=== PATIENT | male | born 1990 | race Caucasian/White ===

== ENCOUNTER 2022-02-23 22:46 | Emergency (ER) | payer OTHER, SELFPAY ==
--- NOTE | ~2022-02-23 | XR_ITS ---
EXAMINATION: XR CHEST CLINICAL INFORMATION: Chest pain. COMPARISON: Chest radiograph 07/21/2013. TECHNIQUE: PA view of the chest was obtained. FINDINGS: No significant abnormality is noted involving the heart, lungs, mediastinum, bony thorax or soft tissues. XR/XR chest 1V IMPRESSION: Unremarkable examination.
--- NOTE | 2022-02-23 22:49 | ECG_ITS ---
Test Reason : cx pain Blood Pressure : / mmHG Vent. Rate : 082 BPM Atrial Rate : 082 BPM P-R Int : 150 ms QRS Dur : 082 ms QT Int : 366 ms P-R-T Axes : 020 042 069 degrees QTc Int : 427 ms Normal sinus rhythm Cannot rule out Anterior infarct , age undetermined Abnormal ECG When compared with ECG of 29-JUL-2017 00:52, Nonspecific T wave abnormality now evident in Lateral leads Referred By: Generic ED Physician Electronically Signed By:YAHIR FREY MD
[2022-02-24 00:07] VITALS: BP 141/97; PULSE 84; RESP 20; TEMP 36.7; O2SAT 96; BMI 28.4
[2022-02-24 00:27] VITALS: BP 149/97; PULSE 71; RESP 16; TEMP 36.9; O2SAT 98
[2022-02-24 00:38] LABS: Basophils Absolute Auto 0.1 X10*3/uL (0.0-0.2); Basophils Percent Auto 0.8 % (0-2); Eosinophils Absolute Auto 0.2 X10*3/uL (0.0-0.4); Eosinophils Percent Auto 2.3 % (0-4); Hemoglobin 15.2 g/dl (14.0-18.0); Imm Gran Abs Auto 0.06 X10*3/uL (0.00-0.03); Imm Gran Pct Auto 0.7 % (0.0-0.4); Lymphocytes Absolute Auto 2.4 X10*3/uL (1.2-4.9); Lymphocytes Percent Auto 26.2 % (20-40); MANUAL DIFF FLAG NO; Mean Corpuscular HGB Conc 34.5 g/dl (31.0-36.0); Mean Corpuscular Hemoglobin 32.3 pg (27.0-33.0); Mean Corpuscular Volume 93.4 fL (80.0-98.0); Mean Platelet Volume 9.2 fL (9.4-12.4); Monocytes Percent Auto 11.2 % (2-11); Neutrophils Absolute Auto 5.4 x10*3/uL (2.0-8.3); Neutrophils Percent Auto 58.8 % (45-73); Platelet Count 339 X10*3/uL (160-400); Red Blood Count 4.71 X10*6/uL (4.60-5.80); Red Cell Distribution Width 12.2 % (11.0-16.0); White Blood Count 9.2 X10*3/uL (4.8-10.8)
--- NOTE | 2022-02-24 00:51 | ED_ITS ---
HPI - Chest Pain General Chief Complaint: Chest Pain <MEGHANA Quiñones Last Filed: 02/24/22 02:34> Stated Complaint: Chest pain <MEGHANA Quiñones Last Filed: 02/24/22 02:34> Time Seen by Provider: 02/24/22 00:37 <MEGHANA Quiñones Last Filed: 02/24/22 02:34> Source: patient <MEGHANA Quiñones Last Filed: 02/24/22 02:34> Mode of arrival: ambulatory <MEGHANA Quiñones Last Filed: 02/24/22 02:34> Limitations: no limitations <MEGHANA Quiñones Last Filed: 02/24/22 02:34> History of Present Illness HPI narrative: 31-year-old male with no past medical history presenting today with sudden onset of chest pain that woke him up from sleep at 1830 today. He states that the pain radiates down his left arm, and that he feels out of breath even when he is sitting still. He also reports pain on the outside of his left calf going on for a while. His significant other states he has had a similar episode about a month ago, however this time he has the pain in his calf. He denies any headache, Fever, nausea, vomiting, chills, myalgias, abdominal pain, palpitations. Reports marijuana and cocaine use. <MEGHANA Quiñones Last Filed: 02/24/22 02:34> Related Data Allergies/Adverse Reactions: Allergies Allergy/AdvReac Type Severity Reaction Status Date / Time No Known Allergies Allergy Verified 02/24/22 00:10 <MEGHANA Quiñones Last Filed: 02/24/22 02:34> Review of Systems Review of Systems: Constitutional : No Weight loss, No Fever, No Chills, No Fatigue, No Malaise ENT/Mouth : No sore throat, No Rhinorrhea Eyes: No Eye Pain, No Swelling, No Redness Cardiovascular : + Chest Pain, + SOB, No Dyspnea on Exertion, No Orthopnea, No Edema, No Palpitations Respiratory : No Cough, No Sputum, No Wheezing Gastrointestinal : No Nausea, No Vomiting, No Diarrhea, No Constipation, No abdominal Pain, No Hematochezia, No Melena Genitourinary : No Dysuria, No Urinary Frequency, No Hematuria, Musculoskeletal : No joint pain, No Myalgias, No Joint Swelling Skin : No Skin Lesions, No rash Neuro : No Weakness, No Numbness, No Dizziness, No Headache Psych : No Anxiety/Panic, No Depression Heme/Lymph: No Bruising, No Bleeding,No Lymphadenopathy Endocrine : No Polyuria, No Polydipsia All other systems reviewed and are negative <MEGHANA Quiñones - Last Filed: 02/24/22 02:34> Yes all other systems are reviewed and are negative <MEGHANA Quiñones - Last Filed: 02/24/22 02:34> [facility] Past Medical History Attestation statement: The following information was validated with the patient. <MEGHANA Quiñones - Last Filed: 02/24/22 02:34> Source: old records reviewed and nursing notes reviewed <MEGHANA Quiñones - Last Filed: 02/24/22 02:34> Social History Social History: Social History Advance Directives: No Advance Directives Information Provided: Yes <MEGHANA Quiñones - Last Filed: 02/24/22 02:34> Physical Exam Vital Signs: Vital Signs: Last Vital Signs Temp 98.4 F 02/24/22 00:27 Pulse 71 02/24/22 00:27 Resp 16 02/24/22 00:27 BP 149/97 H 02/24/22 00:27 Pulse Ox 98 02/24/22 00:27 O2 Del Method 02/24/22 00:27 BMI result Body Mass Index 28.4 Vital signs stable <MEGHANA Quiñones - Last Filed: 02/24/22 02:34> Vital Signs: Last Vital Signs Temp 98.4 F 02/24/22 00:27 Pulse 71 02/24/22 00:27 Resp 16 02/24/22 00:27 BP 149/97 H 02/24/22 00:27 Pulse Ox 98 02/24/22 00:27 O2 Del Method 02/24/22 00:27 BMI result Body Mass Index 28.4 <Zahida Nieto MD - Last Filed: 02/24/22 03:12> Appearance: Alert.? Oriented X3.? No acute distress.? Head: Normocephalic, atraumatic, no step-offs or deformities Eyes: Pupils equal, round and reactive to light.? ENT: Pharynx normal.? Neck: Normal inspection.? Neck supple.? CVS: Normal heart rate and rhythm.? Pulses normal.?+ pain with palpation to left anterior chest wall Respiratory: No respiratory distress.? Breath sounds normal.? Abdomen: Soft and nontender.? Skin: Skin warm and dry.? Normal skin color.? Normal skin turgor.? Extremities: No lower extremity edema.? No calf ttp, negative mcihael b/l. 5/5 strength to bilateral upper and lower extremities Neuro: Oriented X 3.? No motor deficit.? No sensory deficit. CN 2-12 intact <MEGHANA Quiñones - Last Filed: 02/24/22 02:34> Course Reevaluation(s) Reevaluation #1: CBC within normal limits. CBC within normal limits. Chemistry with no acute electrolyte abnormalities requiring intervention. Troponin negative, EKG nonischemic unlikely ACS. Chest Xray unremarkable. Dimer pending. I suspect chostochondritis. Unlikely PE, will rule out with dimer. Sign out given to Dr. Nieto. Pending dimer. I suspect DC home. <MEGHANA Quiñones - Last Filed: 02/24/22 02:34> CBC within normal limits. CBC within normal limits. Chemistry with no acute electrolyte abnormalities requiring intervention. Troponin negative, EKG nonischemic unlikely ACS. Chest Xray unremarkable. Dimer pending. I suspect chostochondritis. Unlikely PE, will rule out with dimer. Sign out given to Dr. Nieto. Pending dimer. I suspect DC home. D-dimer is negative, troponin negative, patient ready for discharge <Zahida Nieto MD - Last Filed: 02/24/22 03:12> Time: 02:21 <MEGHANA Quiñones - Last Filed: 02/24/22 02:34> MDM - Chest Pain MDM Narrative Medical decision making narrative: 0020 31-year-old male presents with chest pain, shortness of breath and left-sided calf pain since around 630 today, pain will come from his sleep. Tells me this has happened to him before. Reports cocaine and marijuana use. Tells me all of these are intermittent in nature. no personal or family cardiac history. Physical examination benign . Negative Michael bilaterally. Will rule out ACS, PE. Patient has no risk factors for DVT or PE therefore PE unlikely <MEGHANA Quiñones - Last Filed: 02/24/22 02:34> Medical Records Data Attestation: I reviewed the patient's medical records. <MEGHANA Quiñones - Last Filed: 02/24/22 02:34> Lab Data Attestation: I reviewed the patient's lab results. <MEGHANA Quiñones - Last Filed: 02/24/22 02:34> Result diagrams: : 02/24/22 00:33 02/24/22 00:33 <MEGHANA Quiñones - Last Filed: 02/24/22 02:34> Labs: Lab Results 02/24/22 02/24/22 02/24/22 Range/Units 00:33 00:33 00:33 WBC 9.2 (4.8-10.8) X10*3/uL RBC 4.71 (4.60-5.80) X10*6/uL Hgb 15.2 (14.0-18.0) g/dl Hct 44.0 (42.0-52.0) % MCV 93.4 (80.0-98.0) fL MCH 32.3 (27.0-33.0) pg MCHC 34.5 (31.0-36.0) g/dl RDW 12.2 (11.0-16.0) % Plt Count 339 (160-400) X10*3/uL MPV 9.2 L (9.4-12.4) fL Immature Gran % (Auto) 0.7 H (0.0-0.4) % Neut % (Auto) 58.8 (45-73) % Lymph % (Auto) 26.2 (20-40) % [place] % (Auto) 11.2 H (2-11) % Eos % (Auto) 2.3 (0-4) % Baso % (Auto) 0.8 (0-2) % Lymph # (Auto) 2.4 (1.2-4.9) X10*3/uL [place] # (Auto) 1.0 (0.1-1.2) X10*3/uL Eos # (Auto) 0.2 (0.0-0.4) X10*3/uL Baso # (Auto) 0.1 (0.0-0.2) X10*3/uL Abs Immat Gran (auto) 0.06 H (0.00-0.03) X10*3/uL Absolute Neuts (auto) 5.4 (2.0-8.3) x10*3/uL Absolute Nucleated RBC 0.000 (0.0-0.012) X10*3/uL Nucleated RBC % (auto) 0.0 (0.0-0.2) /100WBC D-Dimer High Sensitivty NG/ML Sodium 135 (135-145) mmol/L Potassium 4.6 (3.3-5.1) mmol/L Chloride 106 (96-108) mmol/L Carbon Dioxide 20 L (22-29) mmol/L Anion Gap 14 (12-20) BUN 13 (9-16) mg/dL Creatinine 0.93 (0.5-1.4) mg/dL Estim Creat Clear Calc 119.7 Estimated GFR > 60 Random Glucose 92 (60-115) mg/dL Calcium 9.4 (8.4-10.2) mg/dL Troponin I High Sens < 3.5 (<3.5-35.0) ng/L 02/24/22 Range/Units 02:45 WBC (4.8-10.8) X10*3/uL RBC (4.60-5.80) X10*6/uL Hgb (14.0-18.0) g/dl Hct (42.0-52.0) % MCV (80.0-98.0) fL MCH (27.0-33.0) pg MCHC (31.0-36.0) g/dl RDW (11.0-16.0) % Plt Count (160-400) X10*3/uL MPV (9.4-12.4) fL Immature Gran % (Auto) (0.0-0.4) % Neut % (Auto) (45-73) % Lymph % (Auto) (20-40) % [place] % (Auto) (2-11) % Eos % (Auto) (0-4) % Baso % (Auto) (0-2) % Lymph # (Auto) (1.2-4.9) X10*3/uL [place] # (Auto) (0.1-1.2) X10*3/uL Eos # (Auto) (0.0-0.4) X10*3/uL Baso # (Auto) (0.0-0.2) X10*3/uL Abs Immat Gran (auto) (0.00-0.03) X10*3/uL Absolute Neuts (auto) (2.0-8.3) x10*3/uL Absolute Nucleated RBC (0.0-0.012) X10*3/uL Nucleated RBC % (auto) (0.0-0.2) /100WBC D-Dimer High Sensitivty < 150 NG/ML Sodium (135-145) mmol/L Potassium (3.3-5.1) mmol/L Chloride (96-108) mmol/L Carbon Dioxide (22-29) mmol/L Anion Gap (12-20) BUN (9-16) mg/dL Creatinine (0.5-1.4) mg/dL Estim Creat Clear Calc Estimated GFR Random Glucose (60-115) mg/dL Calcium (8.4-10.2) mg/dL Troponin I High Sens (<3.5-35.0) ng/L <MEGHANA Quiñones - Last Filed: 02/24/22 02:34> Lab Results 02/24/22 02/24/22 02/24/22 Range/Units 00:33 00:33 00:33 WBC 9.2 (4.8-10.8) X10*3/uL RBC 4.71 (4.60-5.80) X10*6/uL Hgb 15.2 (14.0-18.0) g/dl Hct 44.0 (42.0-52.0) % MCV 93.4 (80.0-98.0) fL MCH 32.3 (27.0-33.0) pg MCHC 34.5 (31.0-36.0) g/dl RDW 12.2 (11.0-16.0) % Plt Count 339 (160-400) X10*3/uL MPV 9.2 L (9.4-12.4) fL Immature Gran % (Auto) 0.7 H (0.0-0.4) % Neut % (Auto) 58.8 (45-73) % Lymph % (Auto) 26.2 (20-40) % [place] % (Auto) 11.2 H (2-11) % Eos % (Auto) 2.3 (0-4) % Baso % (Auto) 0.8 (0-2) % Lymph # (Auto) 2.4 (1.2-4.9) X10*3/uL [place] # (Auto) 1.0 (0.1-1.2) X10*3/uL Eos # (Auto) 0.2 (0.0-0.4) X10*3/uL Baso # (Auto) 0.1 (0.0-0.2) X10*3/uL Abs Immat Gran (auto) 0.06 H (0.00-0.03) X10*3/uL Absolute Neuts (auto) 5.4 (2.0-8.3) x10*3/uL Absolute Nucleated RBC 0.000 (0.0-0.012) X10*3/uL Nucleated RBC % (auto) 0.0 (0.0-0.2) /100WBC D-Dimer High Sensitivty NG/ML Sodium 135 (135-145) mmol/L Potassium 4.6 (3.3-5.1) mmol/L Chloride 106 (96-108) mmol/L Carbon Dioxide 20 L (22-29) mmol/L Anion Gap 14 (12-20) BUN 13 (9-16) mg/dL Creatinine 0.93 (0.5-1.4) mg/dL Estim Creat Clear Calc 119.7 Estimated GFR > 60 Random Glucose 92 (60-115) mg/dL Calcium 9.4 (8.4-10.2) mg/dL Troponin I High Sens < 3.5 (<3.5-35.0) ng/L 02/24/22 Range/Units 02:45 WBC (4.8-10.8) X10*3/uL RBC (4.60-5.80) X10*6/uL Hgb (14.0-18.0) g/dl Hct (42.0-52.0) % MCV (80.0-98.0) fL MCH (27.0-33.0) pg MCHC (31.0-36.0) g/dl RDW (11.0-16.0) % Plt Count (160-400) X10*3/uL MPV (9.4-12.4) fL Immature Gran % (Auto) (0.0-0.4) % Neut % (Auto) (45-73) % Lymph % (Auto) (20-40) % [place] % (Auto) (2-11) % Eos % (Auto) (0-4) % Baso % (Auto) (0-2) % Lymph # (Auto) (1.2-4.9) X10*3/uL [place] # (Auto) (0.1-1.2) X10*3/uL Eos # (Auto) (0.0-0.4) X10*3/uL Baso # (Auto) (0.0-0.2) X10*3/uL Abs Immat Gran (auto) (0.00-0.03) X10*3/uL Absolute Neuts (auto) (2.0-8.3) x10*3/uL Absolute Nucleated RBC (0.0-0.012) X10*3/uL Nucleated RBC % (auto) (0.0-0.2) /100WBC D-Dimer High Sensitivty < 150 NG/ML Sodium (135-145) mmol/L Potassium (3.3-5.1) mmol/L Chloride (96-108) mmol/L Carbon Dioxide (22-29) mmol/L Anion Gap (12-20) BUN (9-16) mg/dL Creatinine (0.5-1.4) mg/dL Estim Creat Clear Calc Estimated GFR Random Glucose (60-115) mg/dL Calcium (8.4-10.2) mg/dL Troponin I High Sens (<3.5-35.0) ng/L <Zahida Nieto MD - Last Filed: 02/24/22 03:12> ECG Data ECG #1: Attestation: I personally reviewed and interpreted this ECG as follows: <MEGHANA Quiñones - Last Filed: 02/24/22 02:34> ECG interpretation date: 02/24/22 <MEGHANA Quiñones - Last Filed: 02/24/22 02:34> ECG interpretation time: 23:30 <MEGHANA Quiñones - Last Filed: 02/24/22 02:34> Prior ECG tracings: not available for review <MEGHANA Quiñones - Last Filed: 02/24/22 02:34> Interpretation: ventricular rate of 82, AK normal, QRS normal, QT/ QTC normal. EKG with normal sinus rhythm no signs acute ischemia, no ST elevations or inversions. No previous to compare with. <MEGHANA Quiñones - Last Filed: 02/24/22 02:34> Critical Care Time Critical Care Time Critical Care Time: No <MEGHANA Quiñones - Last Filed: 02/24/22 02:34> Discharge Plan Discharge Clinical Impression: Chest pain, Costochondritis, Left against medical advice <MEGHANA Quiñones - Last Filed: 02/24/22 02:34> Patient Disposition: Home, Self-Care <MEGHANA Quiñones - Last Filed: 02/24/22 02:34> Instructions: Chest Pain (ED), Costochondritis (ED) <MEGHANA Quiñones - Last Filed: 02/24/22 02:34> Additional Instructions: Take your medications as prescribed. If you were prescribed antibiotics today, it is important that you take your medication to their entirety, do not skip any doses, do not finish them early. Follow-up with your primary care provider this week. follow-up with cardiology if this continues Return to the emergency department with new or worsening symptoms. Such as fevers, chills, chest pain, shortness of breath, nausea, vomiting, dizziness, headache, vision changes, lethargy In case of emergency call 911 you can take ibuprofen every 6 hours, Tylenol every 4 as needed for pain or discomfort Your choosing to leave against medical advice which means your condition can go on diagnosis, can worsen, risks include worsening condition, decreased quality of life, pain, heart attack, stroke, . <MEGHANA Quiñones - Last Filed: 02/24/22 02:34> Referrals: Truman Reynoso MD [Physician] - 2 days Sanket Monk MD [Primary Care Provider] - 2 days <MEGHANA Quiñones - Last Filed: 02/24/22 02:34> Stand Alone Forms: Against Medical Advice, Work/School Release <MEGHANA Quiñones - Last Filed: 02/24/22 02:34>
[2022-02-24 00:59] LABS: Troponin-I High Sensitivity < 3.5 ng/L (<3.5-35.0)
[2022-02-24 01:03] LABS: Anion Gap 14 (12-20); Blood Urea Nitrogen 13 mg/dL (9-16); Calcium 9.4 mg/dL (8.4-10.2); Carbon Dioxide 20 mmol/L (22-29); Chloride 106 mmol/L (96-108); Creatinine Clr Calc Pharmacy 119.7; Estimated Glomerular Filt Rate > 60; Glucose Random 92 mg/dL (60-115); Potassium 4.6 mmol/L (3.3-5.1); Sodium 135 mmol/L (135-145)
[2022-02-24 03:04] LABS: D Dimer High Sensitivity < 150 NG/ML
== END 2022-02-24 03:57 | disposition home or self-care (01) ==
PROVIDERS: Emergency Medicine; Physician Assistant; Emergency Provider Emergency Medicine; PCP Internal Medicine
DX: R07.89 Other chest pain (principal); R06.02 Shortness of breath; M94.0 Chondrocostal junction syndrome [Tietze]; M79.605 Pain in left leg; Z79.899 Other long term (current) drug therapy
CPT/HCPCS: 36415; 71045; 80048; 84484; 85025; 85379; 93005; 99284

== ENCOUNTER 2022-04-05 14:46 | Emergency (ER) | payer OTHER, SELFPAY | END 2022-04-05 17:25 | disposition left against medical advice (07) | PROVIDERS: Emergency Provider Emergency Medicine | DX: Z04.9 Encounter for examination and observation for unspecified reason (principal) ==

== ENCOUNTER 2022-08-26 18:20 | Emergency (ER) | payer OTHER, SELFPAY ==
--- NOTE | ~2022-08-26 | XR_ITS ---
EXAMINATION: XR CHEST CLINICAL INFORMATION: Cough and fever COMPARISON: 2021 TECHNIQUE: Frontal view of the chest was obtained. FINDINGS: No significant abnormality is noted involving the heart, lungs, mediastinum, bony thorax or soft tissues. XR/XR chest 1V IMPRESSION: Unremarkable examination.
[2022-08-26 18:24] VITALS: BP 122/70; BP 125/61; PULSE 106; PULSE 89; RESP 18; TEMP 36.9; O2SAT 96; O2SAT 97; BMI 24.9
[2022-08-26] MEDS: diphenhydrAMINE HCL 25 MG CAPSULE 50 MG PO (20:08)
[2022-08-26 20:46] LABS: COVID-19 Test Negative (Negative); IDNOW Serial# 16C4AD1C; IDNOW Serial# BCCEAD1C; Influenza A Negative (Negative); Influenza B2 Negative (Negative)
[2022-08-26 21:13] LABS: IDNOW Serial# 6674DD1D; Strep A Nucleic Acid Negative (Negative)
--- NOTE | 2022-08-26 21:32 | ED_ITS ---
HPI - URI/Sore Throat General Chief Complaint: Fever Stated Complaint: Fever,Weakness,Hives Time Seen by Provider: 08/26/22 19:06 Source: patient Mode of arrival: ambulatory Limitations: no limitations History of Present Illness HPI Narrative: Patient not vaccinated against COVID/flu comes in for fever chills running nose since early today temperature of 102.7 degrees nobody else sick at home patient's mother was sick 2 weeks ago with flu patient also itching all over took Tylenol and Motrin before he can Related Data Previous Rx's Medication Instructions Recorded cefuroxime axetil 500 mg tablet 500 mg PO BID #20 tabs 08/26/22 ibuprofen 600 mg tablet 600 mg PO Q6H PRN fever or pain 08/26/22 #30 tabs Allergies Allergy/AdvReac Type Severity Reaction Status Date / Time No Known Allergies Allergy Verified 02/24/22 00:10 Review of Systems Review of Systems: Yes all other systems are reviewed and are negative PMFSH Social History Social History Advance Directives: No Advance Directives Information Provided: No Physical Exam Vital Signs: Vital Signs: Last Vital Signs Temp 99.4 F 08/26/22 22:16 Pulse 89 08/26/22 18:24 Resp 18 08/26/22 18:24 BP 125/61 08/26/22 18:24 Pulse Ox 96 08/26/22 18:24 O2 Del Method 08/26/22 18:24 BMI result Body Mass Index 24.9 Appearance: Alert. Oriented X3. No acute distress. ENT: Pharynx inflamed Oral Mucosa moist clear rhinorrhea Neck: Normal inspection. Neck supple. CVS: Normal heart rate and rhythm. Pulses normal. Respiratory: No respiratory distress. Equal air entry bilateral, no wheezing/rales/rhonchi Abdomen: Soft and nontender. Bowel sounds are present, no mass palpable, no CVA tenderness Skin: Skin warm and dry. Normal skin color. Normal skin turgor. Extremities: No lower extremity edema. No calf tenderness Neuro: Oriented X 3. Medications Administered Discontinued Medications Generic Name Dose Route Start Last Admin Trade Name Freq PRN Reason Stop Dose Admin Cefuroxime Axetil 500 mg 08/26/22 21:56 08/26/22 22:15 Cefuroxime Axetil 500 Mg Tablet PO 08/26/22 21:57 500 mg ONCE ONE Administration Diphenhydramine HCl 50 mg 08/26/22 19:27 08/26/22 20:08 Diphenhydramine Hcl 25 Mg Capsule PO 08/26/22 19:28 50 mg ONCE ONE Administration Medical Decision Making Medical Decision Making [facility] Narrative: Patient with fever mild cough on exam she had has erythema of the throat but strep and COVID and flu negative chest x-ray also negative will give patient Ceftin possible pharyngitis Lab Data [facility] Lab Attestation statement: I reviewed the patient's lab results. Labs: Lab Results 08/26/22 08/26/22 08/26/22 Range/Units 20:06 20:06 21:01 COVID-19 (GRISEL) Negative (Negative) COVID-19 Clin Com See Note Influenza Type A (KELI) Negative (Negative) Influenza Type B (KELI) Negative (Negative) Influenza A & B Note See Note S. pyogenes GrpA KELI Negative (Negative) Discharge Plan Discharge Clinical Impression: URI (upper respiratory infection) Patient Disposition: Home, Self-Care Instructions: Upper Respiratory Infection (ED) Additional Instructions: Take antibiotic as prescribed Drink plenty of fluids Tylenol/Motrin for fever Follow with PCP if not better Prescriptions: New ibuprofen 600 mg tablet 600 mg PO Q6H PRN (Reason: fever or pain) Qty: 30 0RF cefuroxime axetil 500 mg tablet 500 mg PO BID Qty: 20 0RF Stand Alone Forms: Work/School Release Interventions: ED Discharge Assessment Last Done: 08/26/22 22:18 Discharge Date/Time: 08/26/22 22:26
[2022-08-26 22:16] VITALS: TEMP 37.4
== END 2022-08-26 22:26 | disposition home or self-care (01) ==
PROVIDERS: Emergency Provider Internal Medicine
DX: J06.9 Acute upper respiratory infection, unspecified (principal); R50.9 Fever, unspecified; Z20.822 Contact with and (suspected) exposure to COVID-19
CPT/HCPCS: 36415; 71045; 87502; 87635; 87651; 99283; 99284

== ENCOUNTER 2022-10-13 03:13 | Emergency (ER) | payer OTHER, SELFPAY ==
[2022-10-13 03:35] VITALS: BP 133/86; PULSE 105; RESP 16; TEMP 36.4; O2SAT 98; BMI 24.4
--- NOTE | 2022-10-13 04:53 | ED_ITS ---
HPI - Wound/Laceration General Chief Complaint: Wound/Laceration Stated Complaint: Cut on right wrist Time Seen by Provider: 10/13/22 04:49 Source: patient Mode of arrival: ambulatory History of Present Illness HPI narrative: 32-year-old male who presents with laceration to inner right wrist over 12 hours ago and denies any difficulty with moving the wrist in any direction and states his last tetanus shot was within the past 5 years. Related Data Previous Rx's Medication Instructions Recorded cefuroxime axetil 500 mg tablet 500 mg PO BID #20 tabs 08/26/22 ibuprofen 600 mg tablet 600 mg PO Q6H PRN fever or pain 08/26/22 #30 tabs amoxicillin 875 mg-potassium 1 tab PO BID 7 days #14 tabs 10/13/22 clavulanate 125 mg tablet Allergies Allergy/AdvReac Type Severity Reaction Status Date / Time No Known Allergies Allergy Verified 10/13/22 03:38 Review of Systems Review of Systems: Pertinent positives and negatives as stated in HPI [facility] Past Medical History Source: nursing notes reviewed Social History Social History Advance Directives: No Advance Directives Information Provided: No Physical Exam Vital Signs: Vital Signs: Last Vital Signs Temp 97.6 F 10/13/22 03:35 Pulse 105 H 10/13/22 03:35 Resp 16 10/13/22 03:35 BP 133/86 10/13/22 03:35 Pulse Ox 98 10/13/22 03:35 O2 Del Method 10/13/22 03:35 BMI result Body Mass Index 24.4 VITAL SIGNS: Reviewed. GENERAL: Well developed, well nourished, in no acute distress. HEAD: Normocephalic/atraumatic EYES: PERRLA, EOMI LUNGS: Normal breath sounds. No adventitious sounds or accessory muscle use. SpO2<98> CARDIOVASCULAR: Regular rate and rhythm without noted murmurs ABDOMEN: Soft, non-tender, non-distended with bowel sounds. EXTREMITIES: No cyanosis, clubbing or edema; RIGHT UPPER EXTREMITY: There is an irregular laceration noted to the inner aspect of the right wrist without tendon involvement and appears to be old in nature as that has already started to close over and has a significant amount of surrounding erythema. SKIN: Inspection of the skin reveals no rashes NEUROLOGIC: Alert and oriented x 4. Strength and sensation to light touch were grossly intact x 4. Medical Decision Making Medical Decision Making MDM Narrative: 32-year-old male with delayed presentation after laceration to right wrist that appears to have secondary infection in patient had wound addressed and received initial antibiotics. He does not need a Tdap in it is too late for primary closure. Patient understands and will complete the course of antibiotics. Differential Diagnosis Please see the discussion above Discharge Plan Discharge Clinical Impression: Laceration, Cellulitis Patient Disposition: Home, Self-Care Instructions: Cellulitis (ED) Additional Instructions: 1. Complete the entire course of antibiotics as ordered. 2. Recommend [id number] Tylenol/ibuprofen as needed for pain control. 3. May cleanse area with soap and water and reapply antibiotic ointment and then dressing. 4. Follow-up with primary care provider in the next 2-3 days for re-evaluation. Return to the ER for any worsening symptoms. Prescriptions: New amoxicillin-pot clavulanate 875-125 mg tablet 1 tab PO BID 7 Days Qty: 14 0RF No Action ibuprofen 600 mg tablet 600 mg PO Q6H PRN (Reason: fever or pain) Qty: 30 0RF cefuroxime axetil 500 mg tablet 500 mg PO BID Qty: 20 0RF Referrals: Sanket Monk MD [Primary Care Provider] -
[2022-10-13] MEDS: Amoxicillin/Potassium Clav 875 MG TABLET PO (05:10)
[2022-10-13] MEDS: Bacitracin Oint 0.9 GM PACKET 1 APPL TOPICAL (05:11)
== END 2022-10-13 05:16 | disposition home or self-care (01) ==
PROVIDERS: Emergency Provider Student in an Organized Health Care Education/Training Program; PCP Internal Medicine
DX: L03.113 Cellulitis of right upper limb (principal)
CPT/HCPCS: 99283; 99284

== ENCOUNTER 2022-11-25 22:13 | Emergency (ER) | payer OTHER, SELFPAY ==
[2022-11-25 22:57] VITALS: BP 142/107; PULSE 93; RESP 18; TEMP 36.9; O2SAT 98; BMI 24.1
--- NOTE | 2022-11-26 00:33 | ED.GENADULT ---
HPI - General Adult General Chief complaint: Dental/Oral Stated complaint: dental pain Time Seen by Provider: 11/26/22 00:24 Source: patient, RN notes reviewed and old records reviewed Mode of arrival: ambulatory Limitations: no limitations History of Present Illness HPI narrative: 32-year-old male presents for evaluation of right facial pain. He reports that he went to the dentist last week. He is scheduled to have a root canal of her right upper molar. He states that he while on Friday was told that he has an infection so they could not do the procedure yet Patient then stated that he is flying to [place] on Friday until Friday. The dentist told him he does not want the police to prior to flying The patient is due to see a dentist again on Friday pain He is currently taking clindamycin He reports that he has not been able to sleep the last 2 days due to the pain PE He states he was told that his nerve root was ?exposed. ? He has been taking ibuprofen and Tylenol alternating every 4 hours with minimal relief of his pain Patient reports that he wears partial dentures but has been unable to wear them recently because ?they got bent and do not fit right now. ? Related Data Previous Rx's Medication Instructions Recorded cefuroxime axetil 500 mg tablet 500 mg PO BID #20 tabs 08/26/22 ibuprofen 600 mg tablet 600 mg PO Q6H PRN fever or pain 08/26/22 #30 tabs amoxicillin 875 mg-potassium 1 tab PO BID 7 days #14 tabs 10/13/22 clavulanate 125 mg tablet oxycodone 5 mg tablet 5 mg PO Q6H PRN severe pain (scale 11/26/22 score 7-10) #12 tabs Allergies Allergy/AdvReac Type Severity Reaction Status Date / Time No Known Allergies Allergy Verified 11/25/22 22:59 Review of Systems ENT: Denies bleeding gums, Reports otalgia and Reports facial pain PMFSH Social History Social History Advance Directives: No Advance Directives Information Provided: Yes Physical Exam ED Vital Signs: Vital Signs - 24 hr 11/25/22 22:57 Temperature 98.4 F Pulse Rate 93 Respiratory Rate 18 Blood Pressure 142/107 H Pulse Oximetry 98 Oxygen Delivery Method Room Air BMI result Body Mass Index 24.1 Const General: cooperative, healthy appearing, comfortable, alert and awake Orientation/consciousness: patient oriented x3 HENMT Other: Patient has had most of his upper teeth removed. He has a partial tooth 7. With minimal surrounding gingival edema. No discrete drainable abscess. Head: Yes normocephalic and Yes atraumatic Teeth and gingiva: abnormal dentition and abnormal tooth and associated gingiva Neck Other: No facial or anterior neck swelling Neuro General: patient oriented x3 Medications Administered Discontinued Medications Generic Name Dose Route Start Last Admin Trade Name Freq PRN Reason Stop Dose Admin Oxycodone HCl 5 mg 11/26/22 00:32 11/26/22 00:57 Oxycodone Hcl Immed Release 5 Mg Tablet PO 11/26/22 00:33 5 mg ONCE ONE Administration Medical Decision Making Medical Decision Making [facility] Narrative: Patient appears to have appropriate dental follow-up. Will provide a short course of oxycodone for analgesia while he is taking the antibiotics and until he can follow up for definitive treatment with the dentist. Differential Diagnosis Atypical facial pain Dental caries Dental pain Dental fracture Dental abscess Discharge Plan Discharge Clinical Impression: Atypical face pain, Pain, dental Patient Disposition: Home, Self-Care Instructions: Toothache (ED) Additional Instructions: Continue using ibuprofen Tylenol as needed for pain. You may use [id number] benzocaine to help numb the localized area Use oxycodone for severe or breakthrough pain This may make you sleepy, do not drink alcohol or drive after taking it Follow-up with your dentist for definitive treatment Continue taking your antibiotics as prescribed Prescriptions: New oxycodone 5 mg tablet 5 mg PO Q6H PRN (Reason: severe pain (scale score 7-10)) Qty: 12 0RF Rx Instructions: Partial Fill upon patient request. No Action amoxicillin-pot clavulanate 875-125 mg tablet 1 tab PO BID 7 Days Qty: 14 0RF ibuprofen 600 mg tablet 600 mg PO Q6H PRN (Reason: fever or pain) Qty: 30 0RF cefuroxime axetil 500 mg tablet 500 mg PO BID Qty: 20 0RF Stand Alone Forms: Work/School Release Interventions: ED Discharge Assessment Last Done: 11/26/22 00:59 Discharge Date/Time: 11/26/22 01:00
[2022-11-26] MEDS: oxyCODONE HCl Immed Release 5 MG TABLET PO (00:57)
== END 2022-11-26 01:00 | disposition home or self-care (01) ==
PROVIDERS: Emergency Provider Internal Medicine; PCP Internal Medicine
DX: G50.1 Atypical facial pain (principal); K08.89 Other specified disorders of teeth and supporting structures
CPT/HCPCS: 99283

== ENCOUNTER 2024-11-17 10:37 | Day surgery (SDC) | payer OTHER, SELFPAY ==
[2024-11-17] VITALS (13 sets, daily range): BP systolic 104–164; BP diastolic 59–108; PULSE 64–87; RESP 16–24; TEMP 35.7–36.4; O2SAT 94–99; BMI 26.6
--- NOTE | ~2024-11-17 | US_ITS ---
EXAMINATION: US SCROTUM WITH DOPPLER COMPLETE HISTORY: Intermittent right testicle pain, question torsion. COMPARISON: There are no prior studies for comparison. FINDINGS: Real-time grayscale ultrasound imaging of the scrotum was performed. Color and spectral Doppler analysis was also performed. RIGHT TESTICLE: The right testis measures 4.7 x 2.2 x 2.6 cm and demonstrates normal homogeneous echotexture. No masses are seen. No arterial or venous color or spectral Doppler flow can be documented in the right testis. RIGHT EPIDIDYMIS: The left epididymis is normal in size and shape but demonstrates decreased vascularity when compared to the left. There is a 3 mm cyst in the epididymal head and an additional 3 mm cyst of the epididymal tail. LEFT TESTICLE: The left testis measures 4.4 x 2.2 x 3.1 cm and demonstrates normal homogeneous echotexture. No masses are seen. The left testis demonstrates normal arterial and venous color Doppler and spectral waveforms. LEFT EPIDIDYMIS: Normal in size, shape, and vascularity. VARICOCELE: None. HYDROCELE: No significant hydrocele is seen. OTHER COMMENTS: None. US/US scrotum doppler IMPRESSION: No arterial or venous vascular flow can be documented to the right testis, and there is markedly decreased vascularity to the right epididymis. Findings are highly suspicious for torsion. Findings were discussed with Dr. Cooper in the emergency room on 11/17/2024 at 12:16 PM. Electronically signed by: Micky Dent MD 11/17/2024 12:18 PM EDT
--- NOTE | ~2024-11-17 | US_ITS ---
EXAMINATION: US SCROTUM WITH DOPPLER COMPLETE HISTORY: Intermittent right testicle pain, question torsion. COMPARISON: There are no prior studies for comparison. FINDINGS: Real-time grayscale ultrasound imaging of the scrotum was performed. Color and spectral Doppler analysis was also performed. RIGHT TESTICLE: The right testis measures 4.7 x 2.2 x 2.6 cm and demonstrates normal homogeneous echotexture. No masses are seen. No arterial or venous color or spectral Doppler flow can be documented in the right testis. RIGHT EPIDIDYMIS: The left epididymis is normal in size and shape but demonstrates decreased vascularity when compared to the left. There is a 3 mm cyst in the epididymal head and an additional 3 mm cyst of the epididymal tail. LEFT TESTICLE: The left testis measures 4.4 x 2.2 x 3.1 cm and demonstrates normal homogeneous echotexture. No masses are seen. The left testis demonstrates normal arterial and venous color Doppler and spectral waveforms. LEFT EPIDIDYMIS: Normal in size, shape, and vascularity. VARICOCELE: None. HYDROCELE: No significant hydrocele is seen. OTHER COMMENTS: None. US/US scrotum IMPRESSION: No arterial or venous vascular flow can be documented to the right testis, and there is markedly decreased vascularity to the right epididymis. Findings are highly suspicious for torsion. Findings were discussed with Dr. Cooper in the emergency room on 11/17/2024 at 12:16 PM. Electronically signed by: iMcky Dent MD 11/17/2024 12:18 PM EDT
[2024-11-17 10:53] LABS: MANUAL DIFF FLAG NO
[2024-11-17 10:54] LABS: Basophils Absolute Auto 0.1 X10*3/uL (0.0-0.2); Basophils Percent Auto 1.1 % (0-2); Eosinophils Absolute Auto 0.2 X10*3/uL (0.0-0.4); Eosinophils Percent Auto 2.7 % (0-4); Hematocrit 42.5 % (42.0-52.0); Hemoglobin 15.8 g/dl (14.0-18.0); Imm Gran Abs Auto 0.02 X10*3/uL (0.00-0.03); Imm Gran Pct Auto 0.3 % (0.0-0.4); Lymphocytes Absolute Auto 2.8 X10*3/uL (1.2-4.9); Lymphocytes Percent Auto 37.1 % (20-40); Mean Corpuscular HGB Conc 37.2 g/dl (31.0-36.0); Mean Corpuscular Hemoglobin 34.3 pg (27.0-33.0); Mean Corpuscular Volume 92.2 fL (80.0-98.0); Mean Platelet Volume 8.7 fL (9.4-12.4); Monocytes Absolute Auto 0.9 X10*3/uL (0.1-1.2); Monocytes Percent Auto 11.6 % (2-11); Neutrophils Absolute Auto 3.6 x10*3/uL (2.0-8.3); Neutrophils Percent Auto 47.2 % (45-73); Platelet Count 371 X10*3/uL (160-400); Red Blood Count 4.61 X10*6/uL (4.60-5.80); Red Cell Distribution Width 12.2 % (11.0-16.0); White Blood Count 7.5 X10*3/uL (4.8-10.8)
[2024-11-17 11:08] LABS: Alanine Aminotransferase 24 U/L (0-40); Albumin Level 4.3 g/dL (3.5-5.0); Alkaline Phosphatase 84 U/L (39-117); Anion Gap 10 (12-20); Aspartate Amino Transferase 21 U/L (5-37); Bilirubin Direct 0.1 mg/dL (0.0-0.5); Bilirubin Total 0.5 mg/dL (0.0-1.0); Blood Urea Nitrogen 15 mg/dL (9-16); Calcium 9.9 mg/dL (8.4-10.2); Carbon Dioxide 24 mmol/L (22-29); Chloride 109 mmol/L (96-108); Creatinine Clr Calc Pharmacy 136.6; Estimated Glomerular Filt Rate > 60; Glucose Random 96 mg/dL (60-115); Potassium 3.8 mmol/L (3.3-5.1); Sodium 139 mmol/L (135-145); Total Protein 7.3 g/dL (6.5-8.0)
--- NOTE | 2024-11-17 11:10 | ED_ITS ---
HPI - General Adult General Chief complaint: General Medical Stated complaint: pain in testicles urinating blood Time Seen by Provider: 11/17/24 10:56 Source: patient Mode of arrival: ambulatory Limitations: no limitations History of Present Illness ED Provider: Remigio Cooper DO HPI narrative: 34-year-old male with no significant past medical or surgical history presents to the ED due to intermittent, atraumatic right testicular pain that started a couple hours ago at work. He reports that his urine is dark but he otherwise denies dysuria, hematuria, urgency, frequency, fevers, chills, nausea, vomiting or abdominal pain. He states the pain comes and goes without any clear pattern. No concern for sexually transmitted infection. Related Data Previous Rx's ?Medication ?Instructions ?Recorded cefuroxime axetil 500 mg tablet 500 mg PO BID #20 tabs 08/26/22 ibuprofen 600 mg tablet 600 mg PO Q6H PRN fever or pain 08/26/22 #30 tabs amoxicillin 875 mg-potassium 1 tab PO BID 7 days #14 tabs 10/13/22 clavulanate 125 mg tablet oxycodone 5 mg tablet 5 mg PO Q6H PRN severe pain (scale 11/26/22 score 7-10) #12 tabs naproxen 500 mg tablet 500 mg PO BID PRN pain 7 days #14 11/17/24 tabs oxycodone 5 mg tablet 5 mg PO Q8H PRN pain 3 days #8 tabs 11/17/24 Allergies Allergy/AdvReac Type Severity Reaction Status Date / Time No Known Allergies Allergy Verified 11/17/24 10:41 Review of Systems 2 Review of Systems: Yes all other systems are reviewed and are negative [facility] Past Medical History Surgical History (Updated 11/17/24 @ 13:17 by Christi Patino RN) History of tonsillectomy and adenoidectomy Social History Social History Patient Tobacco Use Status: Current everyday Tobacco user Tobacco use type: Cigarette Cigarette Packs Per Day: 1 Cigarettes Per Day: 20.0 Substance Use Type: Crack/Cocaine and Marijuana Physical Exam ED Vital Signs: Vital Signs - 24 hr 11/17/24 10:39 11/17/24 11:32 11/17/24 12:08 Temperature 96.2 F L Pulse Rate 87 70 Respiratory Rate 18 18 18 Blood Pressure 164/108 H 134/93 H Pulse Oximetry 99 Oxygen Delivery Method Room Air Oxygen Flow Rate 11/17/24 12:25 11/17/24 13:21 11/17/24 14:30 Temperature 97.5 F 97 F Pulse Rate 64 80 Respiratory Rate 18 16 18 Blood Pressure 124/96 H 140/80 H 112/59 L Pulse Oximetry 97 96 Oxygen Delivery Method Room Air Simple Mask Oxygen Flow Rate 15 11/17/24 14:35 Temperature Pulse Rate 77 Respiratory Rate 24 H Blood Pressure 104/63 Pulse Oximetry 97 Oxygen Delivery Method Simple Mask Oxygen Flow Rate 15 BMI result Body Mass Index 26.6 Constitutional: Alert, oriented, speaking in full sentences, in obvious acute pain distress HEENT: Normocephalic, atraumatic. Eyes: PERRL, EOMI Neck: Supple, nontender Chest: No chest wall tenderness Respiratory: no increased work of breathing Cardio: Regular rate and rhythm GI: Soft, nondistended, nontender : Somewhat high-riding and firm testicle on the right compared to the left. No induration otherwise or erythema. Does not appear to improve completely with elevation. Back: Normal range of motion, nontender Skin: No rash, no lesions Neuro: Alert and oriented to person, place and time, moves all 4 extremities, no focal deficits Extremities: No swelling or tenderness, full range of motion Psych: Calm, alert and cooperative, appropriate behavior Medications Administered Discontinued Medications Generic Name Dose Route Start Last Admin Trade Name Freq PRN Reason Stop Dose Admin Acetaminophen 975 mg 11/17/24 14:11 11/17/24 14:46 Acetaminophen 325 Mg Tablet PO 11/17/24 14:12 975 mg ONCE ONE Administration Hydromorphone HCl 1 mg 11/17/24 11:57 11/17/24 12:04 Hydromorphone Hcl 1 Mg/Ml Syringe IVPUSH 11/17/24 11:58 1 mg ONCE ONE Administration Protocol Sodium Chloride 1,000 mls @ 999 mls/hr 11/17/24 11:15 11/17/24 13:06 Ns IV 11/17/24 12:15 Infused .Q1H1M ISMAEL Infusion Ketorolac Tromethamine 15 mg 11/17/24 11:04 11/17/24 11:13 Ketorolac Tromethamine 15 Mg/Ml Vial IVPUSH 11/17/24 11:05 15 mg ONCE ONE Administration Morphine Sulfate 4 mg 11/17/24 11:20 11/17/24 11:32 Morphine Sulfate 4 Mg/Ml Cartridge IVPUSH 11/17/24 11:21 4 mg ONCE ONE Administration Protocol Medical Decision Making Medical Decision Making [facility] Narrative: Patient presenting with signs and symptoms concerning for testicular torsion on the right side. He has no abdominal tenderness or peritoneal signs. Differential diagnosis includes orchitis and epididymitis. The patient appeared in acute pain distress and received ketorolac, morphine and hydromorphone with improvement. His urinalysis showed no signs of cystitis. He immediately had an ultrasound which showed evidence of lack of blood flow of the right testicle concerning for torsion. Urology notified and took the patient to the operating room for detorsion. Patient was discharged from their service. Lab Data 11/17/24 10:48 11/17/24 10:48 Labs: Lab Results 11/17/24 11/17/24 Range/Units 10:48 12:22 WBC 7.5 (4.8-10.8) X10*3/uL RBC 4.61 (4.60-5.80) X10*6/uL Hgb 15.8 (14.0-18.0) g/dl Hct 42.5 (42.0-52.0) % MCV 92.2 (80.0-98.0) fL MCH 34.3 H (27.0-33.0) pg MCHC 37.2 H (31.0-36.0) g/dl RDW 12.2 (11.0-16.0) % Plt Count 371 (160-400) X10*3/uL MPV 8.7 L (9.4-12.4) fL Immature Gran % (Auto) 0.3 (0.0-0.4) % Neut % (Auto) 47.2 (45-73) % Lymph % (Auto) 37.1 (20-40) % [place] % (Auto) 11.6 H (2-11) % Eos % (Auto) 2.7 (0-4) % Baso % (Auto) 1.1 (0-2) % Lymph # (Auto) 2.8 (1.2-4.9) X10*3/uL [place] # (Auto) 0.9 (0.1-1.2) X10*3/uL Eos # (Auto) 0.2 (0.0-0.4) X10*3/uL Baso # (Auto) 0.1 (0.0-0.2) X10*3/uL Abs Immat Gran (auto) 0.02 (0.00-0.03) X10*3/uL Absolute Neuts (auto) 3.6 (2.0-8.3) x10*3/uL Absolute Nucleated RBC 0.000 (0.0-0.012) X10*3/uL Nucleated RBC % (auto) 0.0 (0.0-0.2) /100WBC Sodium 139 (135-145) mmol/L Potassium 3.8 (3.3-5.1) mmol/L Chloride 109 H (96-108) mmol/L Carbon Dioxide 24 (22-29) mmol/L Anion Gap 10 L (12-20) BUN 15 (9-16) mg/dL Creatinine 0.82 (0.5-1.4) mg/dL Estim Creat Clear Calc 136.6 Estimated GFR > 60 Random Glucose 96 (60-115) mg/dL Calcium 9.9 (8.4-10.2) mg/dL Total Bilirubin 0.5 (0.0-1.0) mg/dL Direct Bilirubin 0.1 (0.0-0.5) mg/dL AST 21 (5-37) U/L ALT 24 (0-40) U/L Alkaline Phosphatase 84 (39-117) U/L Total Protein 7.3 (6.5-8.0) g/dL Albumin 4.3 (3.5-5.0) g/dL Urine Color Brown A Urine Appearance Cloudy Urine pH 5.5 (5.0-9.0) Ur Specific [place] >= 1.030 H (1.005-1.025) Urine Protein 100 (2+) H (Neg-Trace) mg/dL Urine Glucose (UA) Negative (Negative) mg/dL Urine Ketones Trace (Negative) mg/dL Urine Blood Large (3+) H (Negative) Urine Nitrite Negative (Negative) Ur Leukocyte Esterase Negative (Negative) Urine RBC >20 H (0-2) /HPF Urine WBC 0-5 (0-5) /HPF Ur Squamous Epith Cells 0-2 (0-2) /HPF Calcium Oxalate Crystal Present Urine Bacteria None Seen (None Seen) Hyaline Casts 0-2 (0-2) /LPF Discharge Plan Discharge Clinical Impression: Torsion of testis Patient Disposition: Home, Self-Care Instructions: Hydrocele (DC) Prescriptions: New naproxen 500 mg tablet 500 mg PO BID PRN (Reason: pain) 7 Days Qty: 14 0RF oxycodone 5 mg tablet 5 mg PO Q8H PRN (Reason: pain) 3 Days Qty: 8 0RF Rx Instructions: Partial Fill upon patient request. No Action amoxicillin-pot clavulanate 875-125 mg tablet 1 tab PO BID 7 Days Qty: 14 0RF ibuprofen 600 mg tablet 600 mg PO Q6H PRN (Reason: fever or pain) Qty: 30 0RF cefuroxime axetil 500 mg tablet 500 mg PO BID Qty: 20 0RF oxycodone 5 mg tablet 5 mg PO Q6H PRN (Reason: severe pain (scale score 7-10)) Qty: 12 0RF Rx Instructions: Partial Fill upon patient request. Interventions: Admission Worksheet (ED) Last Done: 11/17/24 13:09 Discharge Date/Time: 11/17/24 13:19 Print Language: [place]
[2024-11-17] MEDS: 0.9 % Sodium Chloride 1,000 ML 999 ML IV (11:13)
[2024-11-17] MEDS: Ketorolac Tromethamine 15 MG/ML VIAL IVPUSH ×2 (11:13→14:54)
[2024-11-17] MEDS: Morphine Sulfate 4 MG/ML CARTRIDGE IVPUSH (11:32)
[2024-11-17] MEDS: HYDROmorphone HCl 1 MG/ML SYRINGE IVPUSH (12:04)
[2024-11-17 12:33] LABS: Appearance Urine Cloudy; Glucose Urine UA Negative (Negative); Leukocyte Esterase Urine Negative (Negative); Nitrite Urine Negative (Negative); PH 5.5 (5.0-9.0); Specific Gravity - Urine >= 1.030 (1.005-1.025); UMIC TRIGGER UACC YES; Urine Blood Large (3+) (Negative); Urine Ketones Trace mg/dL (Negative); Urine Protein 100 (2+) mg/dL (Neg-Trace)
--- NOTE | 2024-11-17 12:34 | PM.UROCN ---
History of Present Illness Consult details Consult date: 11/17/24 Narrative: CC: Right testicular torsion 34-year-old male Reports right-sided sudden onset testicular pain that started 2 hours prior presentation lost at work Denies any forms of trauma States pain has been coming and going without any clear pattern up to 05/20 Imaging performed No arterial or venous vascular flow can be documented to the right testis, and there is markedly decreased vascularity to the right epididymis. Findings are highly suspicious for torsion. Findings were discussed with Dr. Cooper in the emergency room on 11/17/2024 at 12:16 PM. On examination has discomfort however this is masked by pain medications Testicle is riding high Cremasteric reflex still present Highly likely intermittent torsion or partial torsion Recommend scrotal exploration with orchidopexy Risks of testicular loss discussed with patient and partner at bedside Review of Systems Constitutional: Constitutional: Denies chills and Denies fever(s) Cardiovascular: Cardiovascular: Reports no additional cardiovascular complaints and Denies syncope Respiratory: Respiratory: Denies cough Gastrointestinal: Gastrointestinal: Denies abdominal pain and Denies heartburn Genitourinary: Genitourinary: Reports as per HPI and Denies change in libido Neurologic: Denies syncope Psychiatric: Psychiatric: Denies change in libido Endocrine: Endocrine: Denies change in libido [facility] Social History Social History Substance Use Type: Crack/Cocaine and Marijuana Substance Use Frequency: Weekly Advance Directives: No Advance Directives Information Provided: Yes Meds Allergies Allergy/AdvReac Type Severity Reaction Status Date / Time No Known Allergies Allergy Verified 11/17/24 10:41 Physical Exam Vital Signs: Vital Signs: Last Vital Signs Temp 96.2 F L 11/17/24 10:39 Pulse 70 11/17/24 12:08 Resp 18 11/17/24 12:25 BP 124/96 H 11/17/24 12:25 Pulse Ox 99 11/17/24 10:39 O2 Del Method Room Air 11/17/24 10:39 BMI result Body Mass Index 26.6 Const: General: cooperative, healthy appearing, comfortable and no acute distress Orientation/consciousness: patient oriented x3 HEENT: Face and sinus: Yes normal facial exam Mouth: moist mucous membranes Neck: Neck: Yes normal visual inspection, Yes full ROM and Yes trachea midline Chest: Chest palpation & inspection: normal inspection of the chest Resp: Effort & Inspection: normal respiratory effort, able to speak in complete sentences and no respiratory distress GI: Inspection: Yes normal to inspection Back/Spine/Pelvis: Cervical Spine: normal cervical lordosis Thoracic/Lumbar Spine: thoracic and lumbar spine normal to inspection Skin: General skin exam: no rashes or lesions noted Neuro: General: patient oriented x3, gait normal, tone normal and moves all extremities Extrem: General: Yes normal to inspection and Yes capillary refill normal Results Labs 11/17/24 10:48 11/17/24 10:48 Labs: Abnormal lab results 11/17/24 Range/Units 10:48 MCH 34.3 H (27.0-33.0) pg MCHC 37.2 H (31.0-36.0) g/dl MPV 8.7 L (9.4-12.4) fL [place] % (Auto) 11.6 H (2-11) % Chloride 109 H (96-108) mmol/L Anion Gap 10 L (12-20) Short CBC 11/17/24 Range/Units 10:48 WBC 7.5 (4.8-10.8) X10*3/uL Hgb 15.8 (14.0-18.0) g/dl Hct 42.5 (42.0-52.0) % Plt Count 371 (160-400) X10*3/uL BMP 11/17/24 10:48 Sodium 139 Potassium 3.8 Chloride 109 H Carbon Dioxide 24 BUN 15 Creatinine 0.82 Calcium 9.9 Liver Function 11/17/24 Range/Units 10:48 Total Bilirubin 0.5 (0.0-1.0) mg/dL Direct Bilirubin 0.1 (0.0-0.5) mg/dL AST 21 (5-37) U/L ALT 24 (0-40) U/L Alkaline Phosphatase 84 (39-117) U/L Albumin 4.3 (3.5-5.0) g/dL All other labs normal. Assessment and Plan (1) Testicular torsion: Status: Acute Plan Risks, benefits and alternatives to therapy were discussed. These include but are not limited to infection, bleeding, damage to local organs and tissues, need for further interventions. Anesthetic risks regarding cardiac arrhythmia, blood clots, and potential mortality were discussed. The patient understands the typical recovery time and the outpatient nature of the procedure. After consideration of these risks the patient gives full informed consent and they wish to move ahead with the procedure. - testicular exploration with right-sided orchidopexy Procedures Date of Service Date of Service: 11/17/24
[2024-11-17 12:36] LABS: Color Urine Brown
--- OUTSIDE RECORDS SUMMARY | 2024-11-17 12:45 | XMS_ITS | Encounter Summary ---
Author Organization [facility] Address [address] [place] [phone] Phone Care Team Providers Care Wound Care Specialist Name Role Phone Gary Valles MD Primary Care Provider Unavailabl e Encounter Details Date Type Department Care Team (Late st Contact Info) Description 03/27/2017 Conversion Encounter [facility] - [address] [id number] Social History Tobacco Use Types Packs/Day Years Used Date Smoking Tobacco: Never Assessed Sex and Gender Information Value Date Recorded Sex Assigned at Not on file Legal Sex Male 4:21 PM EDT Gender Identity Not on file Sexual Orientation Not on file documented as of this encounter Plan of Treatment Not on file documented as of this encounter Visit Diagnoses Not on filedocumented in this encounter Care Teams Wound Care Specialist Relationship Specialty Start Date End Date Gary Valles MD PCP - General 03/21/17 documented as of this encounter
--- OUTSIDE RECORDS SUMMARY | 2024-11-17 12:45 | XMS_ITS | Clinical Summary ---
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 Name Role Phone Gary Valles MD Primary Care Provider Unavailabl e Immunizations Immunization Administration Dates Next Due DTaP 5 03/06/1993, 1,11/20/1989,05/09,02/12/1989 Hep B, ped/adol 12/22/2000,02/01/2000,06/20/1999 Hib (HbOC) 11/20/1989 IPV 05/24/1993, 1,11/20/1989,05/09,02/12/1989 MMR 02/01/2000,11/20/1989 Meningococcal Conj (Menactra) MCV4P 05/28/2007 Td (adult) (Tenivac), 5 Lf t etanus toxoid, PF, adsorbed 06/20/1999 Tdap 05/28/2007 Family History Relation Name Status Comments Brother Alive Brother: Alive and well, Epilepsy Mother Alive Mother: Rheumat oid Arthritis / Fibromyalgia Other Family history of ADD/ADHD, Family history of Asthma, Family history of Diabetes mellitus Social History Tobacco Use Types Packs/Day Years Used Date Smoking Tobacco: Never Assessed Sex and Gender Information Value Date Recorded Sex Assigned at Not on file Legal Sex Male 4:21 PM EDT Gender Identity Not on file Sexual Orientation Not on file Plan of Treatment Health Maintenance Due Date Last Done Comments Varicella Vaccines (1 of 2 - 13+ 2-dose series) 2001 DTaP,Tdap,and Td Vaccines (7 - Td or Tdap) 05/28/2017 05/28/2007, 06/20/1999, 03/06/1993, Additional history exists Influenza Vaccines (#1) 2024 COVID-19 Vaccine (2023-25 season) 2024 HIB Vaccines Completed 11/20/1989 IPV Vaccines Completed 05/24/1993, 06/13, 11/20/1989, Additional history exists MMR Vaccines Completed 02/01/2000, 11/20/1989 Hepatitis B Vaccines Completed 12/22/2000, 02/01/2000, 06/20/1999 Meningococcal Vaccine Aged Out 05/28/2007 No tien elvie eligible based on patient's age to complete this topic HPV Vaccines Aged Out No longer eligi ble based on patient's age to complete this topic Hepatitis A Vaccines Aged Out No long er eligible based on patient's age to complete this topic Men B Vaccine Aged Out No longer elig ible based on patient's age to complete this topic Pneumococcal Vaccine Aged Out No long er eligible based on patient's age to complete this topic Care Teams Carton Forming Machine Operator Relationship Specialty Start Date End Date Gary Valles MD PCP - General 03/21/17
[2024-11-17 12:50] LABS: Bacteria Urine None Seen (None Seen); Calcium Oxalate Crystals Urine Present; Hyaline Casts Urine 0-2 /LPF (0-2); RBC Urine >20 /HPF (0-2); Squamous Epithelial Cell Urine 0-2 /HPF (0-2); WBC Urine 0-5 /HPF (0-5)
--- NOTE | 2024-11-17 13:04 | PC.NURSE ---
Spoke with RN Christi in Short Stay Surgery. RN to RN report given as Pt is headed for an emergent surgical procedure.
--- NOTE | 2024-11-17 13:16 | P.CONAN_ITS ---
[facility] Active Problems Active Problems: All Active Problems Testicular torsion (Acute) Family History Family history of problems with anesthesia: No Surgical History Surgical History (Updated 11/17/24 @ 13:17 by Christi Patino RN) History of tonsillectomy and adenoidectomy History of Problems with Anesthesia: No Social History Social History Substance Use Type: Crack/Cocaine and Marijuana Substance Use Frequency: Weekly Advance Directives: No Advance Directives Information Provided: Yes Meds Allergies Allergy/AdvReac Type Severity Reaction Status Date / Time No Known Allergies Allergy Verified 11/17/24 10:41 Exam Height,Weight and Vital Signs: Height 6 ft Weight 89.1 kg Last Vital Signs Temp 96.2 F L 11/17/24 10:39 Pulse 70 11/17/24 12:08 Resp 18 11/17/24 12:25 BP 124/96 H 11/17/24 12:25 Pulse Ox 99 11/17/24 10:39 O2 Del Method Room Air 11/17/24 10:39 Pertinent Lab Results Pertinent Lab Results: Laboratory Tests 11/17/24 11/17/24 10:48 12:22 WBC 7.5 RBC 4.61 Hgb 15.8 Hct 42.5 MCV 92.2 MCH 34.3 H MCHC 37.2 H RDW 12.2 Plt Count 371 MPV 8.7 L Immature Gran % (Auto) 0.3 Neut % (Auto) 47.2 Lymph % (Auto) 37.1 [place] % (Auto) 11.6 H Eos % (Auto) 2.7 Baso % (Auto) 1.1 Lymph # (Auto) 2.8 [place] # (Auto) 0.9 Eos # (Auto) 0.2 Baso # (Auto) 0.1 Abs Immat Gran (auto) 0.02 Absolute Neuts (auto) 3.6 Absolute Nucleated RBC 0.000 Nucleated RBC % (auto) 0.0 Sodium 139 Potassium 3.8 Chloride 109 H Carbon Dioxide 24 Anion Gap 10 L BUN 15 Creatinine 0.82 Estim Creat Clear Calc 136.6 Estimated GFR > 60 Random Glucose 96 Calcium 9.9 Total Bilirubin 0.5 Direct Bilirubin 0.1 AST 21 ALT 24 Alkaline Phosphatase 84 Total Protein 7.3 Albumin 4.3 Urine Color Brown A Urine Appearance Cloudy Urine pH 5.5 Ur Specific [place] >= 1.030 H Urine Protein 100 (2+) H Urine Glucose (UA) Negative Urine Ketones Trace Urine Blood Large (3+) H Urine Nitrite Negative Ur Leukocyte Esterase Negative Urine RBC >20 H Urine WBC 0-5 Ur Squamous Epith Cells 0-2 Calcium Oxalate Crystal Present Urine Bacteria None Seen Hyaline Casts 0-2 Airway Mallampati Class: II (missing, broken teeth on top) TM Dist: >3cm Neck ROM: Full Heart: rrr Lungs: cta Assessment and Plan Assessment Anesthesia Assessment: Anesthesia Plan Discussed and Chart Reviewed Final Anesthetic Review Family History of Problems with Anesthesia: No History of Problems with Anesthesia: No NPO: Yes ASA Class: III and Emergency Final Preanesthetic Review: No Changes in Pt Med Stat, Meds/Allgs Chart Reviewed and Consent Obtained/Reviewed Patient Risk: Intermediate Procedure Risk: Low Anesthetic Plan Anesthetic Plan: GA Disposition: Standard PACU
--- NOTE | 2024-11-17 14:21 | W.PM.OPN ---
Operative Note Operative Note Date of Service: 11/17/24 Narrative: PreOperative Diagnosis: Right testicular torsion Post Operative Diagnosis: Right testicular torsion Procedure: Scrotal exploration with orchidopexy right testicle Surgeon: Dr Agusto aMrcum Anesthesia: General Indications for procedure: Admission through ER. Doppler ultrasound shows no flow to right testicle. Procedure: After informed consent was verified the patient was brought to the operating room and placed in a supine position. Anesthesia was administered per protocol. The patient was prepped and draped in a sterile fashion. Safety pause time-out was performed. Antibiotics being given. Midline incision marked and made on scrotum after injection of subcutaneous lidocaine for pain relief. Dissection taken down to tunica of right testicle. Right testicular tunica opened. Testicle delivered and rotated through 90 degrees to unwind torsion. Mild duskiness of testicle suggestive of partial or intermittent torsion. Testicular appendix removed. Testicle placed back in tunica sac. Three 2-0 Vicryl sutures were placed full-thickness through the testicle and through the tunical wall. Once these had each been placed the tied down ensuring 3 point fixation to prevent any further torsion in the future. Tunica closed with running 2-0 Vicryl suture. Subcutaneous tissues were reapposed with running 2-0 Vicryl suture. Intermittent 3-0 chromic sutures used to close skin incision. Incision cleaned and dressing placed. Patient tolerated the procedure well was extubated in operating room transferred in stable condition to the recovery area. Pathology: [] Drains: []
[2024-11-17] MEDS: Acetaminophen 325 MG TABLET 975 MG PO (14:46)
[2024-11-17] MEDS: oxyCODONE HCl Immed Release 5 MG TABLET PO (14:54)
[2024-11-17 16:34] LABS: CT PCR NOT DETECTED (Not Detect.); NG PCR NOT DETECTED (Not Detect.)
== END 2024-11-17 14:56 ==
LOC: HO.ED 13:09 → HO.SSS 14:56
PROVIDERS: Emergency Provider Emergency Medicine; PCP Internal Medicine; Visit Provider Urology
PROC: (CPT 55110; principal; 2024-11-17 13:00)
DX: N44.00 Torsion of testis, unspecified (principal); N50.811 Right testicular pain; F17.210 Nicotine dependence, cigarettes, uncomplicated; Z79.899 Other long term (current) drug therapy
CPT/HCPCS: 54640; 36415; 76870; 80053; 81001; 82248; 85025; 87491; 87591; 93975; 96361; 96374; 96375; 99285; J0690; J1100; J1171; J1885; J2003; J2250; J2270; J2371; J2405; J2704; J2795; J3010

== ENCOUNTER → 2024-11-17 10:53 | Outpatient (BNV) | payer OTHER, SELFPAY | PROVIDERS: Emergency Provider Emergency Medicine; PCP Internal Medicine; Visit Provider Urology | DX: N44.00 Torsion of testis, unspecified (principal) | CPT/HCPCS: 54640; 99284 ==

== ENCOUNTER → 2024-11-17 11:04 | Outpatient (BNV) | payer OTHER, SELFPAY | PROVIDERS: Emergency Provider Emergency Medicine; PCP Internal Medicine; Visit Provider Radiology Diagnostic Radiology | DX: N50.811 Right testicular pain (principal) | CPT/HCPCS: 76870; 93975 ==

== ENCOUNTER 2024-12-15 09:22 | Outpatient (AMB) | payer OTHER, SELFPAY ==
--- NOTE | 2024-12-15 09:24 | MHC.OFFVIS ---
Intake Visit Reasons: 4W follow up Intake Note: Patient is present for 4W F/U Urology Medication:NONE Antibiotic Allergy:NONE Blood Thinner:NONE Modeling Agent Required: No Allergies No Known Allergies Allergy (Verified 12/15/24 09:25) HPI Comments Details: Postop follow-up for testicular torsion Midline scrotal incision healing well Minimal discomfort P.r.n. follow-up [facility] Surgical History (Updated 11/17/24 @ 13:17 by Christi Patino RN) History of tonsillectomy and adenoidectomy Social History Patient Tobacco Use Status: Current everyday Tobacco user Tobacco use type: Cigarette Cigarette Packs Per Day: 1 Cigarettes Per Day: 20.0 Substance Use Type: Crack/Cocaine and Marijuana Review of Systems Const Denies chills and Denies fever(s) Card Reports no additional complaints and Denies syncope Resp Denies cough GI Denies abdominal pain and Denies heartburn Reports as per HPI and Denies change in libido Neuro Denies syncope Psych Denies change in libido Endo Denies change in libido Physical Exam Const General: cooperative, healthy appearing, comfortable and no acute distress Orientation/consciousness: patient oriented x3 HEENT Face and sinus: Yes normal facial exam Mouth: moist mucous membranes Neck Neck: Yes normal visual inspection, Yes full ROM and Yes trachea midline Chest Chest palpation & inspection: normal inspection of the chest Resp Effort & Inspection: normal respiratory effort, able to speak in complete sentences and no respiratory distress GI Inspection: Yes normal to inspection Back/Spine/Pelvis Cervical Spine: normal cervical lordosis Thoracic/Lumbar Spine: thoracic and lumbar spine normal to inspection Skin General skin exam: no rashes or lesions noted Neuro General: patient oriented x3, gait normal, tone normal and moves all extremities Extrem General: Yes normal to inspection and Yes capillary refill normal Assessment & Plan Assessment & Plan (1) Testicular torsion: Code(s): N44.00 - Torsion of testis, unspecified Category: Medical Plan P.r.n. Patient Instructions: This note is constructed using voice recognition software. While every effort has been made to ensure accuracy product assurance engineer errors may have been included. Imaging studies, laboratory and physical exam results were discussed and reviewed in detail. No major barriers to patient understanding were identified. An opportunity to ask questions regarding the treatment plan was provided. All questions were answered. The patient expressed understanding and agreement with the above treatment plan. The patient is aware they should contact our office by phone for worsening of their current condition or the appearance of new urologic symptoms. Compliance is encouraged with any medications and followup testing that is ordered. It is a privilege to participate in the urologic care of your patient. If you have any questions or concerns regarding treatment for the above conditions, or other urologic issues, please do not hesitate to contact me. The office telephone contact is [phone]. Sincerely, Dr Agusto Marcum MD, [facility] - Urology Compassionate Specialist Care for the Genitourinary System Coding Level of Care Code Global (73749) Diagnoses Testicular torsion N44.00
--- OUTSIDE RECORDS SUMMARY | 2024-12-15 10:05 | XMS_ITS | Encounter Summary ---
Author Organization [facility] Address [address] [place] [phone] Phone Care Team Providers Care Paving Contractor Name Role Phone Gary Valles MD Primary Care Provider Unavailabl e Encounter Details Date Type Department Care Team (Late st Contact Info) Description 03/27/2017 Conversion Encounter [facility] - [address] [id number] Social History Tobacco Use Types Packs/Day Years [...] on filedocumented in this encounter Care Teams Paving Contractor Relationship Specialty Start Date End Date Gary Valles MD PCP - General 03/21/17 documented as of this encounter
--- OUTSIDE RECORDS SUMMARY | 2024-12-15 10:05 | XMS_ITS | Clinical Summary ---
Author Organization [facility] Address [address] [place] [phone] Phone Care Team Providers Care Retail Business Development Manager Name Role Phone Gary Valles MD Primary [...] age to complete this topic Care Teams Retail Business Development Manager Relationship Specialty Start Date End Date Gary Valles MD PCP - General 03/21/17
== END 2024-12-15 09:59 | disposition home or self-care (01) ==
LOC: HO.HUSH 09:22
PROVIDERS: PCP Internal Medicine; Visit Provider Urology
DX: N44.00 Torsion of testis, unspecified (principal)
CPT/HCPCS: 99024

== ENCOUNTER → 2024-12-15 09:22 | Outpatient (BNVA) | payer OTHER, SELFPAY | PROVIDERS: PCP Internal Medicine; Visit Provider Urology | DX: Z09 Encounter for follow-up examination after completed treatment for conditions other than malignant neoplasm (principal); Z87.438 Personal history of other diseases of male genital organs; Z98.890 Other specified postprocedural states | CPT/HCPCS: 99212 ==